=== PATIENT | male | born 1970 | race Caucasian/White ===

== ENCOUNTER 2023-07-31 00:05 | Emergency (ER) | payer MEDICAID ==
[~2023-07-31] VITALS: Ht 180.3 cm; Wt 107.6 kg
[2023-07-31 00:12] VITALS: TEMP 97.8
[2023-07-31] MEDS ORDERED: ketorolac trometh. 30mg/ml inj. IM ONE (00:30)
[2023-07-31] MEDS ORDERED: oxyCODONE/APAP 10/325mg tablet PO ONE (00:30)
[2023-07-31 00:56] VITALS: BP 150/106; PULSE 81; RESP 18; O2SAT 99
== END 2023-07-31 00:58 | disposition home or self-care (01) ==
LOC: ER 00:07
DX: M25.511 Pain in right shoulder (principal); I10 Essential (primary) hypertension
CPT/HCPCS: 93005; 96372; 99283; J1885